=== PATIENT | female | born 1955 | race Caucasian/White ===

== ENCOUNTER 2019-06-29 15:17 | Outpatient (REF) | payer MEDICAID, SELFPAY ==
--- NOTE | 2019-06-29 14:30 | PAPFT_PTH ---
PATIENT: Magalis Sy LOC: [facility] U#:[id number] AGE/SX: 64/F ROOM: RE06/29/[address]: Arelis Orellana : 1955 BED: DIS: 06/29/2019 SPEC #: [id number] RECD: 06/30/19 12:56 STATUS: ALVAREZ REQ #: [id number] TAWANA: 06/29/19 14:[address]: Arelis Orellana DEPT: [facility] Cytology RECD BY: Radha Vazquez ENTERED: 06/30/19 12:56 SP TYPE: PAPFT OTHR DR: Amada Mathias Tissues: 1 - CX/ENDOCX FOR PAP SMEARS Procedures: PAP THIN PREP/UVM Screening HPV DNA PROBE Comments: [id number]
== END 2019-06-29 15:37 ==
LOC: NCHCN 15:17
PROVIDERS: PCP Nurse Practitioner Family; Visit Provider Nurse Practitioner Family
DX: Z12.4 Encounter for screening for malignant neoplasm of cervix (principal); Z11.51 Encounter for screening for human papillomavirus (HPV); Z01.419 Encounter for gynecological examination (general) (routine) without abnormal findings
CPT/HCPCS: 88142; 87624

== ENCOUNTER 2019-11-08 15:10 | Outpatient (CLI) | payer MEDICAID, SELFPAY ==
--- NOTE | 2019-11-08 13:52 | DI.RAD_ITS ---
EXAM: STERNOCLAVICULAR JOINT/S INDICATION: CLAVICLE PAIN M89.8X8. COMPARISON: No exams were available for comparison TECHNIQUE: 2D digital imaging was performed. FINDINGS: No fracture or sternoclavicular joint dislocation is seen. No lytic or blastic lesions are visible. IMPRESSION: Negative sternoclavicular joints.
== END 2019-11-08 15:30 ==
PROVIDERS: PCP Nurse Practitioner Family; Visit Provider Nurse Practitioner Family
DX: M89.8X1 Other specified disorders of bone, shoulder (principal); M25.511 Pain in right shoulder; M25.512 Pain in left shoulder
CPT/HCPCS: 71130

== ENCOUNTER 2023-04-30 13:14 | Outpatient (REF) | payer MEDICARE, MEDICAID, SELFPAY ==
[2023-04-30 14:26] LABS: HCT 41.1 % (36.0-46.0); HGB 13.8 g/dL (11.2-15.7); MCH 29.1 pg (27.0-33.0); MCHC 33.6 % (32.0-36.0); MCV 87 fL (80-95); MPV 9.6 fL (8.0-11.0); Platelet Count 248 10^3/uL (130-400); RBC 4.75 10^6/uL (3.93-5.22); RDW 12.7 % (11.7-14.6); RDW-SD 39.9 fL; WBC 6.13 10^3/uL (4.4-10.8)
[2023-04-30 14:32] LABS: ALT 34 U/L (14-59); AST 22 U/L (15-37); Albumin 4.1 g/dL (3.4-5.0); Alkaline Phosphatase 85 U/L (46-116); Anion Gap 5.5 mmol/L (3-11); BUN 13 mg/dL (7-18); Bilirubin, Total 0.5 mg/dL (0.2-1.0); CO2 30.5 mmol/L (21.0-32.0); CREATININE 0.8 mg/dL (0.55-1.02); Calculated LDL 150 mg/dL (<100); Chloride 105 mmol/L (98-107); Cholesterol 238 mg/dL (<200); Estimated GFR 80.21 (mL/min/1.73m2); Glucose 97 mg/dL (74-106); HDL Cholesterol 76 mg/dL (40-60); Potassium 4.3 mmol/L (3.5-5.1); Sodium 141 mmol/L (136-145); Total Protein 7.8 g/dL (6.4-8.2); Triglyceride 60 mg/dL (<150)
== END 2023-04-30 13:15 | disposition home or self-care (01) ==
LOC: NCHCN 13:14
PROVIDERS: PCP Nurse Practitioner Family; Visit Provider Nurse Practitioner Family
DX: E78.5 Hyperlipidemia, unspecified (principal)
CPT/HCPCS: 80053; 80061; 85027

== ENCOUNTER 2024-05-17 13:33 | Outpatient (REF) | payer MEDICARE, SELFPAY ==
[2024-05-17 14:56] LABS: Abs Immature Grans 0.02 10^3/uL (0.0-0.06); Absolute Basophil Count 0.03 10^3/uL (0.0-0.2); Absolute Eosinophil Count 0.05 10^3/uL (0.0-0.7); Absolute Monocyte Count 0.85 10^3/uL (0.1-0.8); Absolute Neutrophil Count 5.13 10^3/uL (1.2-6.7); Basophils % 0.4 %; Eosinophils % 0.6 %; HCT 40.9 % (36.0-46.0); HGB 13.8 g/dL (11.2-15.7); Immature Grans % 0.2 %; Lymphocytes % 28.3 %; MCH 29.1 pg (27.0-33.0); MCHC 33.7 % (32.0-36.0); MCV 86 fL (80-95); MPV 9.4 fL (8.0-11.0); Neutrophils % 60.5 %; Platelet Count 251 10^3/uL (130-400); RBC 4.74 10^6/uL (3.93-5.22); RDW 12.5 % (11.7-14.6); RDW-SD 39.8 fL; WBC 8.48 10^3/uL (4.4-10.8)
[2024-05-17 15:06] LABS: ALT 38 U/L (14-59); AST 26 U/L (15-37); Albumin 4.1 g/dL (3.4-5.0); Alkaline Phosphatase 82 U/L (46-116); Anion Gap 10.4 mmol/L (3-11); BUN 18 mg/dL (7-18); Bilirubin, Total 0.7 mg/dL (0.2-1.0); CO2 26.6 mmol/L (21.0-32.0); Calcium 9.4 mg/dL (8.5-10.1); Chloride 100 mmol/L (98-107); Estimated GFR 60.98 (mL/min/1.73m2); Glucose 94 mg/dL (74-106); Potassium 4.7 mmol/L (3.5-5.1); Sodium 137 mmol/L (136-145)
[2024-05-18 15:35] LABS: Lyme Ab w Rflx to Lyme Confirm Positive (Negative)
[2024-05-19 09:26] LABS: Lyme IgG Ab Positive (Negative); Lyme IgM Ab Negative (Negative)
[2024-05-19 19:29] LABS: Anaplasma phagocytophilum Negative (Negative); B. miyamotoi PCR Negative (Negative); Babesia divergens/MO-1 Negative (Negative); Babesia duncani Negative (Negative); Babesia microti Negative (Negative); Ehrlichia chaffeensis Negative (Negative); Ehrlichia ewingii/canis Negative (Negative); Ehrlichia muris eauclairensis Negative (Negative)
== END 2024-05-17 13:34 | disposition home or self-care (01) ==
LOC: NCHCN 13:33
PROVIDERS: PCP Nurse Practitioner Family; Visit Provider Family Medicine
DX: R53.83 Other fatigue (principal)
CPT/HCPCS: 80053; 86617; 87798; 85025; 86618

== ENCOUNTER 2024-06-24 11:30 | Emergency (ER) | payer MEDICARE, SELFPAY ==
[2024-06-24] VITALS (46 sets, daily range): BP systolic 101–184; BP diastolic 62–139; PULSE 62–93; RESP 11–29; TEMP 36.6; O2SAT 93–100
--- NOTE | 2024-06-24 11:30 | DI.CT_ITS ---
Exam(s) CT CHEST/ABD/PEL W CT THORACIC LUMBAR SPINE REC EXAM: CT CHEST/ABD/PEL W and CT thoracic and lumbar spine recons CLINICAL HISTORY: Fall off ladder TECHNIQUE: Imaging Protocol: Axial computed tomography images with coronal and sagittal reformatted images were created and reviewed CONTRAST MATERIAL: Intravenous: Omnipaque 350 contrast volume:100 mL Oral: No COMPARISON: CT CT THORACIC LUMBAR SPINE REC from 06/24/2024 FINDINGS: CHEST: Tracheobronchial tree: Patent where visualized. Pulmonary parenchyma: No consolidation or dominant measurable mass. No architectural distortion. Visualized thyroid gland: There is a tiny left thyroid nodule. No follow-up is recommended. Mediastinum and Claudia: No dominant adenopathy or fluid collection. The esophagus is unremarkable. Pleura: No effusion or pneumothorax. Heart: The heart is not dilated. Coronary artery calcifications are present. No pericardial effusion . Pulmonary arteries: Due to the timing of the bolus, opacification of the pulmonary arteries are subop timal for evaluation of pulmonary emboli. Aorta: Thoracic aorta non-dilated. There is no evidence of dissection. Atherosclerotic calcification is present. Lymph nodes: Within normal limits. Soft tissues: Unremarkable. Bones:Within normal limits for the patient's age. Thoracic spine recons: No acute fractures or subluxations are present. Age-appropriate degenerative changes are present. ABDOMEN: Liver: Normal density. No measurable mass. Portal, Superior Mesenteric, and Splenic Veins: Unremarkable. Gallbladder and Biliary Tract: No radiodense calculus or dilation. Pancreas: Normal density, no abnormal calcifications or inflammatory process. Spleen: Normal. Adrenals: No masses seen. Kidneys: Normal size, contour and axis. No radiodense stones or obstructive uropathy. Right renal cys ts are present. No follow-up is recommended. Abdominal Aorta: Abdominal portion non-dilated. Atherosclerotic calcification is present. Bowel: No obstruction or bowel wall thickening. No evidence of appendicitis. Peritoneal Cavity: No ascites, collection or mesenteric inflammatory response. No free air. Lymph Nodes: Within normal limits. Bones: Within normal limits for the patient's age. Soft Tissues: Unremarkable. Lumbar spine recons: No acute fractures or subluxations are seen in the lumbar spine. Age-appropriat e degenerative changes are present. PELVIS: Bladder: Symmetric distention, no gross wall thickening. Reproductive Organs: Unremarkable as visualized. Lymph Nodes: Within normal limits. Bones: Within normal limits. IMPRESSION: 1. No acute pulmonary process. 2. No acute abdominal or pelvic organ injury. 3. No acute fracture or subluxation is seen in the thoracic or lumbar spine. RADIATION DOSE DELIVERED: Total DLP DATA REPOSITORY: All CT scans at this facility are submitted to the National Radiology Data Registry (NRDR) Dose Index Registry (DIR) with the [employer] (ACR). RADIATION OPTIMIZATION: All CT scans at this facility use at least one of these dose optimization te chniques: automated exposure control; mA and/or kV adjustment per patient size (includes targeted exa ms where dose is matched to clinical indication); or iterative reconstruction.
--- NOTE | 2024-06-24 11:30 | DI.CT_ITS ---
Exam(s) CT HEAD CERVICAL SPINE WO EXAM: CT HEAD CERVICAL SPINE WO CLINICAL HISTORY: Fall 6 ft off ladder. TECHNIQUE: Imaging Protocol: Axial computed tomography images with coronal and sagittal reformatted images were created and reviewed COMPARISON: No exams were available for comparison FINDINGS: CT Head: Ventricles and Extra axial spaces: Normal in size and morphology for the patient's age. Hemorrhage: None. Cerebral parenchyma: No acute mass effect. Midline shift: None. Brainstem/Cerebellum: Normal. Calvarium: Normal. Visualized Paranasal sinuses/Mastoids: Clear. Soft Tissues: Unremarkable. CT Cervical Spine: Bones: No acute fracture or subluxation. There is reversal of the normal cervical lordosis. Multilev el degenerative changes are present in the cervical spine. At C3-C4, there is 2-3 mm of anterolisthe sis. This is probably degenerative. Soft Tissues: Unremarkable. Lung Apices: Clear. IMPRESSION: 1. No acute intracranial process. 2. No acute fracture or subluxation in the cervical spine. RADIATION DOSE DELIVERED: Total DLP DATA REPOSITORY: All CT scans at this facility are submitted to the National Radiology Data Registry (NRDR) Dose Index Registry (DIR) with the [employer] (ACR). RADIATION OPTIMIZATION: All CT scans at this facility use at least one of these dose optimization te chniques: automated exposure control; mA and/or kV adjustment per patient size (includes targeted exa ms where dose is matched to clinical indication); or iterative reconstruction.
--- NOTE | 2024-06-24 11:44 | W.ED.GENAD ---
Discharge Plan Disposition Patient Disposition: Home Discharge Details Clinical Impression: Closed fracture of tibial plateau, Elbow laceration, Fall, Abrasion Primary Care Provider: Amada Mathias ED Provider: Radha Arango Home Meds and New Rx's Prescriptions: New oxycodone-acetaminophen [Percocet] 5-325 mg tablet 1 tab PO Q8H PRNQty: 12 0RF No Action No Known Home Meds Discharge Instructions Instructions: Lower leg fracture Additional Instructions: Do not have anything to eat or drink after midnight tonkarmen, orthopedics from [facility] will call you first thing in the morning Take Tylenol 650 mg every 4 hours as needed for pain, do not exceed 3 g daily Take ibuprofen 400 mg every 8 hours Take oxycodone 5 to 10 mg every 6 hours as needed for pain Elevate as much as possible with ice Refrain from bending your knee Sutures will need to be removed in 12 days Wash with soap and water daily and apply bacitracin topically please return immediately should you develop strength or sensation change, dramatic worsening of pain, or new discoloration to your lower extremity Referrals: Amada Mathias [Primary Care Provider] - 1 day HPI <Angelica Diaz NP - Last Filed: 06/24/24 19:21> General Mode of arrival: EMS. Date/Time Provider Initiated Documentation: 06/24/24 11:39. Limitations to Documentation: altered mental status (Patient received 50 mics fentanyl prior to arrival by EMS) and physical limitation. Information obtained by: patient, EMS, RN notes reviewed and old records reviewed. HPI Narrative: 69-year-old female presents to the ER via EMS after a fall from ladder approximately 6 feet off the floor, she struck her left knee on a wooden board and landed on her left side. She denies any loss of consciousness. She is complaining of 10 out of 10 pain in the left knee and left leg. Patient denies any neck or back pain Chest pain abdominal pain. She received 50 mcg of fentanyl prior to arrival IV by EMS and was placed in a sandbag splint. However she is unsure she states pain is all relative no abrasions noted no surface trauma noted no bloating no guarding. There is some swelling just distal to her knee. Distal pedal pulses intact. Vital signs are stable upon arrival. Related Data Home Medications ?Medication ?Instructions ?Recorded ?Confirmed Unknown [No Known Home Meds] 03/31/14 06/24/24 oxycodone-acetaminophen 5 mg-325 1 tab PO Q8H PRN #12 tabs 06/24/24 mg tablet (Percocet) Previous Rx's ?Medication ?Instructions ?Recorded oxycodone-acetaminophen 5 mg-325 1 tab PO Q8H PRN #12 tabs 06/24/24 mg tablet (Percocet) Allergies Allergy/AdvReac Type Severity Reaction Status Date / Time No Known Allergies Allergy Unverified 03/29/14 17:50 General Stated Complaint: Orthopedic CHUCK: 3 Review of Systems <Angelica Diaz NP - Last Filed: 06/24/24 19:21> All systems reviewed & are unremarkable except as noted in HPI and below Constitutional Constitutional: Denies headache(s) ENT Ears, Nose, Mouth, and Throat: Denies headache(s) Musculoskeletal Musculoskeletal: Reports as per HPI, Reports deformity, Reports arthralgias and Reports joint swelling Neurologic Neurologic: Denies headache(s) Exam <Angelica Diaz NP - Last Filed: 06/24/24 19:21> Narrative Exam Narrative: General: Well Developed, Awake and Alert, conversant. Skin: Warm and Dry HEENT: Head: No palpable deformities, Normocephalic Eyes: Pupils PERRLA, EOM's intact. No periorbital eccymosis or step off Ears: Canal patent. Tympanic membranes are clear . No hines's sign, no hemptympanum. Nose/Face: Atraumatic. Facial bones nontender to palpation and stable with manipulation. Mouth/Throat: No intraoral trauma. Teeth and mandible are intact. Neck: No midline tenderness, no step off, no deformity to palpation of C-spine. Trachea midline. Chest: No surface trauma. Nontender without crepitus or deformity. Lungs clear to ausculatation bilaterally. Heart: RRR, no rubs, murmurs or gallop. Abdomen: No abrasions, ecchymosis, or surface trauma. Nondistended. Nontender to palpation no guarding, rebound, or rigidity. Pelvis: Nontender to palpation and stable to compression. Femoral pulses strong and equal Extremities: She does have abrasion noted to her left upper extremity on her forearm it is superficial no bleeding, she is able to move all 4 extremities without difficulty, sensation intact. Abrasion superficial no bleeding to right lateral hip. Peripheral pulses intact and equal. Neuro: ANO x4, GCS 15, cranial nerves II through XII intact. Motor and sensory exam nonfocal. Reflexes are symmetric. Course <Angelica Diaz NP - Last Filed: 06/24/24 19:21> Vital Signs Vital signs: Vital Signs Pulse 77 06/24/24 11:30 Respiratory Rate 20 06/24/24 11:30 Blood Pressure 145/92 H 06/24/24 11:30 Pulse Oximetry 100 06/24/24 11:30 Temperature Source Tympanic 06/24/24 11:30 Pulse 77 06/24/24 11:30 Respiratory Rate 20 06/24/24 11:30 Respiratory Effort Normal 06/24/24 11:40 Blood Pressure 145/92 H 06/24/24 11:30 Blood Pressure Position Supine 06/24/24 11:30 Pulse Oximetry 100 06/24/24 11:30 Oxygen Delivery Method Room Air 06/24/24 11:30 Oxygen Flow Rate 0 06/24/24 11:30 Procedures <CASE Ledezma - Last Filed: 06/24/24 20:32> Laceration Laceration 1: Side (If applicable): right Size (cm): 2.5 Description: irregular Depth: simple, single layer Local anesthetic: Lidocaine 1% Pre-repair: wound explored and irrigated extensively Skin layer closed with: other Size (cm): 4-0 Number of sutures: 3 Technique: other (vertical mattress ) Medical Decision Making <Angelica Diaz NP - Last Filed: 06/24/24 19:21> 69-year-old female presents to the ER via EMS after a fall from ladder approximately 6 feet off the floor, she struck her left knee on a wooden board and landed on her left side. She denies any loss of consciousness. She is complaining of 10 out of 10 pain in the left knee and left leg. Patient denies any neck or back pain Chest pain abdominal pain. She received 50 mcg of fentanyl prior to arrival IV by EMS and was placed in a sandbag splint. However she is unsure she states pain is all relative no abrasions noted no surface trauma noted no bloating no guarding. There is some swelling just distal to her knee. Distal pedal pulses intact. Vital signs are stable upon arrival. Trauma workup ordered including head C-spine chest abdomen pelvis CT T and L-spine CT. X-rays pelvis knee tib-fib and femur ordered. Labs ordered, x-ray of pelvis femur knee, tib-fib. CT head C-spine chest abdomen pelvis. 0.5 Dilaudid IV ordered and 4 of Zofran. Patient given 0.5 Dilaudid IV upon arrival. An additional 0.5 of Dilaudid was given approximately 2 hours later. Patient's pain is now under control. Ice pack given. Distal CMS is intact. 1430: Ortho paged. 1530: Spoke with Dr. Chopra with orthopedic surgery who states this is a fracture requiring surgical intervention and recommends consulting with trauma orthopedic surgeon at [facility]. He does not recommend CT imaging unless this will be an outpatient follow-up case. Patient informed of plan of care, [facility] patient pending callback at this time. 1531: [facility] [place] called to consult with trauma ortho. Care is to be handed off to oncoming provider CASE Ledezma pending [facility] [place]opedic consult. Discussed patient case in detail she verbalized understanding. Imaging Data Radiologic Study: Imaging: X-Ray Radiologist's impression: XR KNEE LT 3V AP,LAT,GLORIA EXAM: XR KNEE LT 3V AP,LAT,GLORIA CLINICAL HISTORY: Fall, Deformity. TECHNIQUE: 2D digital imaging was performed. COMPARISON: No exams were available for comparison FINDINGS: 3 views There is tibial plateau fracture involving both sides of the tibial plateau and extending into the proximal metaphysis of the tibia both sides. Minimal depression on these images. Femoral condyles appear intact. Prominent joint effusion-lipohemarthrosis. IMPRESSION: Complex tibial plateau fracture involving both sides the tibial plateau and extending into the proximal tibial metaphysis both medial and laterally. No obvious fibular head-neck fracture on these knee images. Lipohemarthrosis. Lab Data Lab results reviewed: Yes I reviewed the patient's lab results. Labs: Laboratory Tests Range/Units 06/24/24 11:54 WBC (4.4-10.8) 10^3/uL 7.64 RBC (3.93-5.22) 10^6/uL 4.60 Hgb (11.2-15.7) g/dL 13.5 Hct (36.0-46.0) % 39.3 MCV (80-95) fL 85 MCH (27.0-33.0) pg 29.3 MCHC (32.0-36.0) % 34.4 RDW (11.7-14.6) % 12.9 Plt Count (130-400) 10^3/uL 237 MPV (8.0-11.0) fL 9.0 Immature Gran % % 1.2 Neutrophils % % 62.6 Lymphocytes % % 29.3 Monocytes % % 5.6 Eosinophils % % 0.8 Basophils % % 0.5 Nucleated RBC % (0.0-0.3) % 0.0 Absolute Neutrophils (1.2-6.7) 10^3/uL 4.78 Absolute Lymphocytes (1.2-3.4) 10^3/uL 2.24 Absolute Monocytes (0.1-0.8) 10^3/uL 0.43 Absolute Eosinophils (0.0-0.7) 10^3/uL 0.06 Absolute Basophils (0.0-0.2) 10^3/uL 0.04 Sodium (136-145) mmol/L 141 Potassium (3.5-5.1) mmol/L 4.0 Chloride (98-107) mmol/L 106 Carbon Dioxide (21.0-32.0) mmol/L 26.6 Anion Gap (3-11) mmol/L 8.4 BUN (7-18) mg/dL 19 H Creatinine (0.55-1.02) mg/dL 1.0 Est GFR (CKD-EPI 2020) (mL/min/1.73m2) 60.98 Glucose (74-106) mg/dL 112 H Calcium (8.5-10.1) mg/dL 9.3 Magnesium (1.8-2.4) mg/dL 1.8 Total Bilirubin (0.2-1.0) mg/dL 0.60 AST (15-37) U/L 29 ALT (14-59) U/L 38 Alkaline Phosphatase (46-116) U/L 80 Total Protein (6.4-8.2) g/dL 7.6 Albumin (3.4-5.0) g/dL 3.9 Quality:[facility] Health Related Social Needs: No Data to Display <CASE Ledezma - Last Filed: 06/24/24 20:32> 69-year-old female presents to the ER via EMS after a fall from ladder approximately 6 feet off the floor, she struck her left knee on a wooden board and landed on her left side. She denies any loss of consciousness. She is complaining of 10 out of 10 pain in the left knee and left leg. Patient denies any neck or back pain Chest pain abdominal pain. She received 50 mcg of fentanyl prior to arrival IV by EMS and was placed in a sandbag splint. However she is unsure she states pain is all relative no abrasions noted no surface trauma noted no bloating no guarding. There is some swelling just distal to her knee. Distal pedal pulses intact. Vital signs are stable upon arrival. Trauma workup ordered including head C-spine chest abdomen pelvis CT T and L-spine CT. X-rays pelvis knee tib-fib and femur ordered. Labs ordered, x-ray of pelvis femur knee, tib-fib. CT head C-spine chest abdomen pelvis. 0.5 Dilaudid IV ordered and 4 of Zofran. Patient given 0.5 Dilaudid IV upon arrival. An additional 0.5 of Dilaudid was given approximately 2 hours later. Patient's pain is now under control. Ice pack given. Distal CMS is intact. 1430: Ortho paged. 1530: Spoke with Dr. Chopra with orthopedic surgery who states this is a fracture requiring surgical intervention and recommends consulting with trauma orthopedic surgeon at [facility]. He does not recommend CT imaging unless this will be an outpatient follow-up case. Patient informed of plan of care, [facility] patient pending callback at this time. 1531: [facility] [place] called to consult with trauma ortho. Care is to be handed off to oncoming provider CASE Ledezma pending [facility] [place]opedic consult. Discussed patient case in detail she verbalized understanding. 1630, case discussed with Dr. Reyes orthopedics who recommends the CT of the lower extremity be performed, tibial plateau fracture again noted, spoke with Dr. Anderson, they will call patient first thing in the morning to schedule surgery and reassess This patient required approximately 3 hours of extensive use of her time. We are directly involved her extended periods of time and splint placement, reassurance, mobilization techniques as we do not have physical therapy available. Pain control, and ultimately patient felt comfortable being discharged home. [facility] will call her first thing in the morning. Patient was assessed on numerous occasions without any evidence of compartment syndrome or change in neurological status throughout this encounter visualized. I did suture a wound on patient's right elbow which required 3 vertical mattress stitches will will need to be removed in 12 to 14 days. Tetanus was also updated after reviewing patient's chart. No indication for antibiotics at this time. Return precautions reviewed and patient expressed understanding. PFSH <Angelica Diaz NP - Last Filed: 06/24/24 19:21> All Active Problems (Updated 06/24/24 @ 19:35 by CASE Ledezma) Abrasion (Acute) Fall (Acute) Elbow laceration (Acute) Closed fracture of tibial plateau (Acute) Surgical History Hand surgery Social History Smoking/Tobacco Use Status: Never Smoking risk assessment performed?: Yes Drug use: Never Housing: house Do you feel safe at home: Yes Do you feel safe in your relationship?: Yes Sign Out <Angelica Diaz NP - Last Filed: 06/24/24 19:21> Sign Out Data: Sign Out Comment: Pending [facility] [place]o [place] for left tibial Plateau Fracture. Fall 6 feet off ladder onto left side. Negative Head, C-spine, Chest, Abd pelvis, T and L spine CT's. EMS gave Fentanyl 50mcg IV [employer]. Has received 1 mg Dilaudid IV Here in dept. Last updated by Angelica Diaz NP at 06/24/24 16:10
[2024-06-24] MEDS: HYDROmorphone 2 MG/ML SYR 0.5 MG IVP ×3 (12:00→16:54)
[2024-06-24] MEDS: Ondansetron 4 MG/2 ML VIAL IVP (12:02)
[2024-06-24 12:04] LABS: Abs Immature Grans 0.09 10^3/uL (0.0-0.06); Absolute Basophil Count 0.04 10^3/uL (0.0-0.2); Absolute Eosinophil Count 0.06 10^3/uL (0.0-0.7); Absolute Lymphocyte Count 2.24 10^3/uL (1.2-3.4); Absolute Monocyte Count 0.43 10^3/uL (0.1-0.8); Absolute Neutrophil Count 4.78 10^3/uL (1.2-6.7); Basophils % 0.5 %; Eosinophils % 0.8 %; HCT 39.3 % (36.0-46.0); HGB 13.5 g/dL (11.2-15.7); Immature Grans % 1.2 %; Lymphocytes % 29.3 %; MCH 29.3 pg (27.0-33.0); MCHC 34.4 % (32.0-36.0); MCV 85 fL (80-95); Monocytes % 5.6 %; Neutrophils % 62.6 %; Platelet Count 237 10^3/uL (130-400); RDW 12.9 % (11.7-14.6); RDW-SD 39.8 fL; WBC 7.64 10^3/uL (4.4-10.8)
[2024-06-24 12:26] LABS: ALT 38 U/L (14-59); AST 29 U/L (15-37); Albumin 3.9 g/dL (3.4-5.0); Alkaline Phosphatase 80 U/L (46-116); Anion Gap 8.4 mmol/L (3-11); BUN 19 mg/dL (7-18); CO2 26.6 mmol/L (21.0-32.0); Calcium 9.3 mg/dL (8.5-10.1); Chloride 106 mmol/L (98-107); Estimated GFR 60.98 (mL/min/1.73m2); Glucose 112 mg/dL (74-106); Magnesium 1.8 mg/dL (1.8-2.4); Sodium 141 mmol/L (136-145); Total Protein 7.6 g/dL (6.4-8.2)
[2024-06-24] MEDS: Normal Saline - Diluent 50 ML VIAL IJ (12:53)
[2024-06-24] MEDS: Omnipaque 350 MG/ML 100 ML BTL IJ (12:53)
[2024-06-24] MEDS: Normal Saline 500 ML IV (13:31)
--- NOTE | 2024-06-24 13:34 | DI.RAD_ITS ---
Exam(s) XR FEMUR LT EXAM: XR FEMUR LT CLINICAL HISTORY: Fall, Pain. TECHNIQUE: 2D digital imaging was performed. COMPARISON: CR XR KNEE LT 3V AP,LAT,GLORIA from 06/24/2024 FINDINGS: Two views-AP and lateral There is no evidence of hip fracture nor fracture more distally in the femur. Tibial plateau fractur e noted. Knee joint effusion/lipohemarthrosis noted IMPRESSION: Tibial plateau fracture. No obvious femur fracture. DATA REPOSITORY: RADIATION DOSE DELIVERED:
--- NOTE | 2024-06-24 13:34 | DI.RAD_ITS ---
Exam(s) XR PELVIS AP EXAM: XR PELVIS AP CLINICAL HISTORY: Fall, Pain. TECHNIQUE: 2D digital imaging was performed. COMPARISON: No exams were available for comparison FINDINGS: BONES: No acute fracture is present. No bony destructive lesion is seen. JOINTS: No dislocation present. No joint space narrowing is present. SOFT TISSUE: Normal. IMPRESSION: No acute fracture or dislocation. DATA REPOSITORY: RADIATION DOSE DELIVERED:
--- NOTE | 2024-06-24 13:34 | DI.RAD_ITS ---
Exam(s) XR TIB/FIB LT EXAM: XR TIB/FIB LT CLINICAL HISTORY: Trauma. TECHNIQUE: 2D digital imaging was performed. COMPARISON: CR XR KNEE LT 3V AP,LAT,GLORIA from 06/24/2024 FINDINGS: Two views-AP and lateral There is a tibial plateau fracture involving both sides the tibial plateau and extending into the pro ximal metaphysis of the tibia. See separate knee joint dictation. No fracture seen more distally in the tibia. There is a very subtle suggestion nondisplaced fibular head fracture. IMPRESSION: Tibial plateau fracture extending into the metaphysis both sides of the tibial plateau. Possible very subtle fibular head-neck fracture. DATA REPOSITORY: RADIATION DOSE DELIVERED:
--- NOTE | 2024-06-24 13:34 | DI.RAD_ITS ---
Exam(s) XR KNEE LT 3V AP,LAT,GLORIA EXAM: XR KNEE LT 3V AP,LAT,GLORIA CLINICAL HISTORY: Fall, Deformity. TECHNIQUE: 2D digital imaging was performed. COMPARISON: No exams were available for comparison FINDINGS: 3 views There is tibial plateau fracture involving both sides of the tibial plateau and extending into the pr oximal metaphysis of the tibia both sides. Minimal depression on these images. Femoral condyles nadya ear intact. Prominent joint effusion-lipohemarthrosis. IMPRESSION: Complex tibial plateau fracture involving both sides the tibial plateau and extending into the proxim al tibial metaphysis both medial and laterally. No obvious fibular head-neck fracture on these knee images. Lipohemarthrosis. DATA REPOSITORY: RADIATION DOSE DELIVERED:
[2024-06-24] MEDS: oxyCODONE 5 MG TAB PO (16:57)
[2024-06-24] MEDS: HYDROmorphone 2 MG/ML SYR 1 MG IVP (18:25)
--- NOTE | 2024-06-24 18:50 | DI.CT_ITS ---
Exam(s) CT LOWER EXTREMITY LT WO EXAM: CT LOWER EXTREMITY LT WO CLINICAL HISTORY: Tibial plateau Fracture. TECHNIQUE: Imaging Protocol: Axial computed tomography images with coronal and sagittal reformatted images were created and reviewed. CONTRAST MATERIAL: Intravenous: Omnipaque 350 Contrast volume:structured data in ml Contrast route:I V - Oral: yes / no COMPARISON: No exams were available for comparison FINDINGS: OSSEOUS: There is a comminuted tibial plateau fracture involving both medial lateral aspects of the t ibial plateau as well as the tibial spines and extending into the metaphysis of the proximal tibia as well as tiny step at the fracture line in the medial cortex of the metaphysis. There is minimal if any significant depression. There are no fractures seen in the distal femur/femoral condyles and no fractures seen in the fibular head and neck. Patella appears intact. Joint effusion-lipohemarthrosi s noted. IMPRESSION: Comminuted tibial plateau fracture. Minimal depression. No fracture of the fibular head-neck Lipohemarthrosis evident in the knee joint. RADIATION DOSE DELIVERED: Total DLP DATA REPOSITORY: All CT scans at this facility are submitted to the National Radiology Data Registry (NRDR) Dose Index Registry (DIR) with the [employer] (ACR). RADIATION OPTIMIZATION: All CT scans at this facility use at least one of these dose optimization te chniques: automated exposure control; mA and/or kV adjustment per patient size (includes targeted exa ms where dose is matched to clinical indication); or iterative reconstruction.
--- NOTE | 2024-06-27 10:37 | NUR.NOTE ---
Accessed Pt chart to obtain the diagnosis for the [facility] paperwork.
== END 2024-06-24 20:04 | disposition home or self-care (01) ==
PROVIDERS: Registered Nurse Emergency; Emergency Provider Physician Assistant; PCP Nurse Practitioner Family
DX: S82.142A Displaced bicondylar fracture of left tibia, initial encounter for closed fracture (principal); S51.012A Laceration without foreign body of left elbow, initial encounter; S50.812A Abrasion of left forearm, initial encounter; W11.XXXA Fall on and from ladder, initial encounter; Y93.89 Activity, other specified; Z23 Encounter for immunization
CPT/HCPCS: 12002; 36415; 73552; 73562; 74177; 80053; 90471; 90715; 96361; 96374; 96375; 96376; 99285; 70450; 71260; 72125; 72170; 73590; 73700; 83735; 85025; J1170; J2405; J3490